=== PATIENT | female | born 1960 | race Caucasian/White ===

== ENCOUNTER 2021-06-22 06:19 | Emergency (ER) | payer OTHER ==
[~2021-06-22 06:19] MED LIST: COZAAR100 MG PO; DUONEB 2.5-0.5M1 AMP NEB; LOPRESSOR25 MG PO; PREDNISONE 20MG20 MG PO
[2021-06-22] MEDS ORDERED: NORCO 5-325 TA1 EACH PO (08:35)
== END 2021-06-22 08:48 | disposition home or self-care (01) ==
LOC: FER 06:19
DX: M25.552 Pain in left hip (principal); M25.562 Pain in left knee; M25.572 Pain in left ankle and joints of left foot; I10 Essential (primary) hypertension; J44.9 Chronic obstructive pulmonary disease, unspecified; F17.210 Nicotine dependence, cigarettes, uncomplicated; Z79.52 Long term (current) use of systemic steroids; Z79.899 Other long term (current) drug therapy; W19.XXXA Unspecified fall, initial encounter; Y92.009 Unspecified place in unspecified non-institutional (private) residence as the place of occurrence of the external cause
CPT/HCPCS: 73502; 73560; 73610